=== PATIENT | female | born 1960 | race Caucasian/White ===

== ENCOUNTER 2018-09-19 08:29 | Day surgery (SDC) | payer OTHER ==
[~2018-09-19 08:29] MED LIST: LIDOCAINE 2% (SDV) 5 ML INJ
[2018-09-19] MEDS ORDERED: PROPOFOL 60 ML (09:28)
== END 2018-09-19 12:32 | disposition home or self-care (01) ==
LOC: GIL 08:29
DX: R19.5 Other fecal abnormalities (principal); K20.8 Other esophagitis
CPT/HCPCS: 43239; 88305; 88312